=== PATIENT | male | born 1960 | race Two or more races ===

== ENCOUNTER 2025-04-27 14:13 | Emergency (ER) | payer MEDICAID, SELFPAY ==
[2025-04-27 14:28] VITALS: BP 145/97; PULSE 117; PULSE 76; RESP 19; RESP 20; TEMP 36.4; O2SAT 100; O2SAT 96; BMI 28.1
--- NOTE | 2025-04-27 14:59 | PC.NURSE ---
PATIENT IS UNCOOPERAITVE , REFUSING TO HAVE LABS AND IV AT THIS TIME
--- NOTE | 2025-04-27 15:01 | PD.EDALCOH ---
ED Alcohol RME/HPI General Chief Complaint: Altered Mental Status Stated Complaint: ALCOHOL INTOXICATION Time Seen by Provider: 04/27/25 14:31 Arrival date/time: 04/27/25 14:13 Limitations: no limitations RME / HPI RME / HPI narrative: Patient is a 64-year-old male with medical history notable for alcohol use disorder this in the emergency department brought in by EMS after he was found drinking beer on somebody's porch and urinating on the porch. Patient denies any chest pain palpitations abdominal pain head pain neck pain trauma shortness of breath fevers chills nausea vomiting. Patient is upset that he is in the emergency department. Related Data Allergies Allergy/AdvReac Type Severity Reaction Status Date / Time No Known Allergies Allergy Verified 04/27/25 14:34 Review of Systems Review of Systems Systems Reviewed: All systems reviewed, normal except as documented Past Medical History Social History SMOKING STATUS: Never smoker ED Exam General Limitations: Present no limitations General appearance: Present alert and in no apparent distress Head Head exam: Present atraumatic and normocephalic Eye Eye exam: Present normal appearance and PERRL ENT ENT exam: Present normal exam and normal oropharynx Neck Neck exam: Present normal inspection and full ROM; Absent tenderness Chest Chest inspection: Present normal inspection and symmetric chest wall rise Respiratory Respiratory exam: Present normal lung sounds bilaterally; Absent respiratory distress Cardiovascular Cardiovascular exam: Present regular rate Abdominal Exam Abdominal exam: Present soft; Absent distention or tenderness Extremities Exam Extremities exam: Present normal inspection and full ROM Back Exam Back exam: Present normal inspection Neurological Exam Neurological exam: Present alert and other Skin Skin exam: Present warm, dry and intact Course Quality Measures none Orders Category Date Time Status Folic Acid Med 04/27/25 14:31 Discontinued 1 mg PO X1 ONE Ringers Lactated 1000 ml [Lactated Ringers] 1,000 ml Med 04/27/25 14:31 Discontinued IV 999 mls/hr Thiamine [Vitamin B-1] Med 04/27/25 14:31 Discontinued 100 mg PO X1 ONE Vital Signs Vital signs: Vital Signs Temperature 97.6 F 04/27/25 14:28 Pulse Rate 117 H 04/27/25 14:28 Respiratory Rate 19 04/27/25 14:28 Blood Pressure 145/97 H 04/27/25 14:28 Pulse Oximetry (%) 96 04/27/25 14:28 Pulse ox is 96% on room air which is adequate. Discharge Plan Plan Patient Disposition: HOME (Self Care) Prescriptions/Referrals Referrals: No Primary/Family,Physician [Primary Care Provider] - In 1 week Problem List Clinical Impression: Alcohol intoxication Patient/Caregiver Discharge Instructions Education Materials: ED Alcohol Intoxication Additional Instructions: Le recomiendo pedir recursos con bueno medico de cabecera para ayudarle a dejar de nick alcohol en exceso. Regresar al departamento de emergencia si tiene cualquier sintoma de preocupacion. Print Language: Estonian Stand Alone Forms: Jannet Award Info., Patient Portal Info Letter Alcohol MDM Narrative MDM Narrative: Patient is a 64-year-old male into the emerged primary concerns for being intoxicated and pelvic. Patient himself has no complaints, he does appear clinically intoxicated. No signs of trauma, do not suspect acute intracranial injury, as he does not have any focal neurodeficits, and is answering questions, following commands. Do not suspect meningitis or acute infectious pathology for patient's presentation. No fever, no sick symptoms. Will provide patient fluids, observe in the emergency department until clinically sober Patient declines fluids and labs. After period of observation patient was able to ambulate, he is GCS 15, not in distress, clinically is sober. 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 [id number]: I spoke with patients , Shahida Gtz, who reports she will come patient the patient up. [id number] patient's family is in the emergency department will picking machine operator helper patient. Patient will be discharged she is hemodynamically stable not distressed, back at his neurologic baseline. Patient data External records reviewed:: EMS form Clinical information provided by:: patient and EMS Social determinants that could affect healthcare access:: alcohol use Patient has the following chronic illnesses:: See MDM How is presenting disease/condition affected by chronic disease/condition?: exacerbated by Evaluation data The following diagnostics were reviewed and interpreted by me:: lab results Lab and/or radiology exams considered but not ordered:: None Interpretation Summary: See MDM Medications / Prescriptions Medications or Prescriptions considered but not ordered:: None Medication administrations:: Medication Administration History Discontinued Medications Folic Acid (Folic Acid 1 Mg Tablet) 1 mg PO X1 ONE Stop: 04/27/25 14:32 Last Admin: 04/27/25 17:51 Dose: 1 mg Documented By: BY Lactated Ringer's (Lactated Ringers) 1,000 mls @ 999 mls/hr IV .Q1H1M ONE Stop: 04/27/25 15:31 Thiamine HCl (Thiamine 100 Mg Tablet) 100 mg PO X1 ONE Stop: 04/27/25 14:32 Last Admin: 04/27/25 17:51 Dose: 100 mg Documented By: BY See above Consultations Consultation(s) initiated? (list below): No Diagnosis Differential diagnosis alcohol: other Most likely diagnosis given after review of the tests above:: Alcohol intoxication Admission Indicated Admission indicated?: not indicated Admission Request Was there a request for admission?: No Disposition Plan Disposition Plan: Discharge Discharge Attestation Discharge Attestation: The patient and all family members were given an opportunity to ask questions and understood the discharge instructions. Discharge instructions specifically effects, indications for sooner follow up or return to the emergency department, and the expected course of current diagnosis. Patient condition: Stable
[2025-04-27 16:31] VITALS: BP 143/83; PULSE 74; RESP 18; TEMP 36.4; O2SAT 99
--- NOTE | 2025-04-27 17:07 | PC.NURSE ---
PATIENT CONTINUES TO REFUSED MEDS OR LABS AT THIS TIME
--- NOTE | 2025-04-27 17:47 | PC.NURSE ---
PT'S CALLED WITH PT'S CONSENT. PT PROVIDED NUMBER TO CALL. PER , WILL FIND A FAMILY MEMBER TO PICK HIM UP.
[2025-04-27] MEDS: FOLIC ACID 1 MG TABLET PO (17:51)
[2025-04-27] MEDS: THIAMINE 100 MG TABLET PO (17:51)
[2025-04-27 18:29] VITALS: BP 125/82; PULSE 85; RESP 18; TEMP 36.6; O2SAT 98
== END 2025-04-27 18:37 | disposition home or self-care (01) ==
PROVIDERS: Emergency Provider Emergency Medicine
DX: F10.929 Alcohol use, unspecified with intoxication, unspecified (principal)
CPT/HCPCS: 80053; 85025; 99282; A9270